=== PATIENT | female | born 1970 | race Hispanic/Latino ===

== ENCOUNTER → 2025-05-06 | Outpatient (CLI) | payer BC ==
[~2025-05-06] MED LIST: IOHEXOL-350 50ML VIAL IV ONE
--- NOTE | 2025-05-06 14:14 | HMCIMG ---
EXAM: CT Head with and without Intravenous Contrast. CLINICAL HISTORY: Headache, unspecified TECHNIQUE: Axial computed tomography images of the head/brain with and without intravenous contrast. CTDIvol: 98.60 mGy; DLP: 1723.40 mGy???cm. Contrast: Exam performed with and without standard dose of intravenous contrast. Clinical Information: Headache, unspecified. CONTRAST: With intravenous contrast. COMPARISON: None provided. FINDINGS: BRAIN No evidence of acute hemorrhage. No mass lesion. No abnormal enhancement. No CT evidence for acute territorial infarct. No midline shift or extra-axial collections. No enhancing mass lesion. VENTRICLES: No hydrocephalus. ORBITS: The orbits are unremarkable. SINUSES AND MASTOIDS: The paranasal sinuses and mastoid air cells are clear. BONES: No fracture. IMPRESSION: 1. No evidence of acute intracranial hemorrhage, mass lesion, or territorial infarct. 2. No hydrocephalus or midline shift. 3. Clear paranasal sinuses and mastoid air cells. 4. No orbital or osseous abnormalities. /English
== END | disposition home or self-care (01) ==
LOC: RAH 11:05
PROVIDERS: ATTEND Family Medicine
DX: I67.82 Cerebral ischemia (principal); R51.9 Headache, unspecified; R00.0 Tachycardia, unspecified
CPT/HCPCS: 70470; Q9967